=== PATIENT | male | born 1995 | race Two or more races ===

== ENCOUNTER 2017-09-05 18:34 | Emergency (ER) | payer SELFPAY ==
[2017-09-05] MEDS ORDERED: Acetaminophen 500 MG Tab PO ONE (19:16)
--- NOTE | 2017-09-05 19:17 | EDM.PDOC ---
ED HPI GENERAL MEDICAL PROBLEM - General Chief Complaint: Respiratory Problem Stated Complaint: SHORT OF BREATH/ASTHMA Time Seen by Provider: 09/05/17 19:15 Source of Information: Reports: Patient, RN History Limitations: Reports: No Limitations - History of Present Illness INITIAL COMMENTS - FREE TEXT/NARRATIVE: 22 yo male here for 2 weeks from [place] and who plans on staying in the area presents with SOB that began at rest about 10 min before coming to the ER. Upon arrival vomited once and now feels his breathing is better. Has a pHx of mild asthma and left his inhaler in [place]. Denies fever or diarrhea. Has no current nausea. No abdominal pain. Onset: Today Onset Date: 09/05/17 Onset Time: 18:45 Duration: Minutes:, Improving Location: Reports: Abdomen Severity: Mild Improves with: Reports: Other (? time) Worsens with: Reports: None Context: Reports: Other (? hx of asthma) Associated Symptoms: Reports: Nausea/Vomiting (x one), Shortness of Breath (now better). Denies: Cough, Fever/Chills, Rash Treatments [employer]: Reports: Other (see below) (none) - Related Data Allergies Allergy/AdvReac Type Severity Reaction Status Date / Time No Known Allergies Allergy Verified 09/05/17 18:56 Home Meds: Home Meds Albuterol [IMW: Albuterol] 2.5 mg .XX ASDIRECTED PRN 09/05/17 [History] Past Medical History - Past Health History Medical/Surgical History: Denies Medical/Surgical History Respiratory History: Reports: Asthma Social & Family History - Tobacco Use Smoking Status *Q: Never Smoker - Caffeine Use Caffeine Use: Reports: None - Recreational Drug Use Recreational Drug Use: No ED ROS GENERAL - Review of Systems Review Of Systems: See Below Constitutional: Reports: No Symptoms HEENT: Reports: No Symptoms Respiratory: Reports: Shortness of Breath (now improved). Denies: Wheezing, Pleuritic Chest Pain, Cough, Sputum, Hemoptysis Cardiovascular: Reports: No Symptoms Endocrine: Reports: No Symptoms GI/Abdominal: Reports: Nausea, Vomiting (once) : Reports: No Symptoms Musculoskeletal: Reports: No Symptoms Skin: Reports: No Symptoms Neurological: Reports: No Symptoms Psychiatric: Reports: No Symptoms ED EXAM, GENERAL - Physical Exam Exam: See Below Exam Limited By: No Limitations General Appearance: Alert, WD/WN, No Apparent Distress, Obese Eye Exam: Bilateral Eye: Normal Inspection Ears: Normal External Exam, Normal Canal, Hearing Grossly Normal Ear Exam: Bilateral Ear: Auricle Normal, Canal Normal Nose: Normal Inspection, Normal Mucosa, No Blood Throat/Mouth: Normal Inspection, Normal Lips, Normal Oropharynx, Normal Voice, No Airway Compromise Head: Atraumatic, Normocephalic Neck: Normal Inspection, Supple, Non-Tender Respiratory/Chest: No Respiratory Distress, Lungs Clear, Normal Breath Sounds, No Accessory Muscle Use Cardiovascular: Regular Rate, Rhythm, Tachycardia GI/Abdominal: Normal Bowel Sounds, Soft, Non-Tender, No Distention Back Exam: Normal Inspection. No: CVA Tenderness (R), CVA Tenderness (L) Extremities: Normal Inspection, Normal Range of Motion, Non-Tender, No Pedal Edema. No: Pedal Edema, Sid's Sign, Leg Pain Neurological: Alert, Oriented, CN II-XII Intact, Normal Cognition, No Motor/ Sensory Deficits Psychiatric: Normal Affect, Normal Mood Skin Exam: Warm, Dry, Intact, Normal Color, No Rash Lymphatic: No Adenopathy EKG INTERPRETATION EKG Date: 09/05/17 Time: 19:05 Rhythm: NSR Rate (Beats/Min): 115 [place]: Normal P-Wave: Present QRS: Normal ST-T: Normal QT: Normal Comparison: NA - No Prior EKG Course - Vital Signs Text/Narrative:: Orthostats normal Last Recorded V/S: Last Vital Signs Temp 37.9 C 09/05/17 18:59 Pulse 124 H 09/05/17 18:59 Resp 20 09/05/17 18:59 BP 138/75 09/05/17 18:59 Pulse Ox 98 09/05/17 18:59 Orthostatic Blood Pressure [ 125/80 Standing] Orthostatic Blood Pressure [ 123/84 Sitting] Orthostatic Blood Pressure [ 131/72 Supine] - Orders/Labs/Meds Orders: Active Orders 24 hr Category Date Time Status Cardiac Monitoring [RC] .As Directed Care 09/05/17 19:08 Active EKG Documentation Completion [RC] ASDIRECTED Care 09/05/17 19:08 Active Orthostatic Vital Signs [RC] ASDIRECTED Care 09/05/17 19:19 Active EKG 12 Lead [EK] Routine Ther 09/05/17 19:08 Ordered Meds: Medications Discontinued Medications Generic Name Dose Route Start Last Admin Trade Name Alejandro PRN Reason Stop Dose Admin Acetaminophen 1,000 mg 09/05/17 19:16 09/05/17 19:35 Tylenol Extra Strength PO 09/05/17 19:17 1,000 mg ONETIME ONE Administration Departure - Departure Time of Disposition: 19:37 Disposition: Home, Self-Care 01 Condition: Fair Clinical Impression: Viral illness Vomiting Qualifiers: Vomiting type: unspecified Vomiting Intractability: non-intractable Nausea presence: unspecified Qualified Code(s): R11.10 - Vomiting, unspecified - Discharge Information Referrals: PCP,None [Primary Care Provider] - Forms: ED Department Discharge - My Orders Last 24 Hours: My Active Orders 09/05/17 19:08 Cardiac Monitoring [RC] .As Directed EKG Documentation Completion [RC] ASDIRECTED EKG 12 Lead [EK] Routine 09/05/17 19:19 Orthostatic Vital Signs [RC] ASDIRECTED - Assessment/Plan Last 24 Hours: My Active Orders 09/05/17 19:08 Cardiac Monitoring [RC] .As Directed EKG Documentation Completion [RC] ASDIRECTED EKG 12 Lead [EK] Routine 09/05/17 19:19 Orthostatic Vital Signs [RC] ASDIRECTED
== END 2017-09-05 19:55 | disposition home or self-care (01) ==
LOC: JP.ED 18:34
DX: B34.9 Viral infection, unspecified (principal); J45.909 Unspecified asthma, uncomplicated
CPT/HCPCS: 93005; 99285; A9270; 93010; 99284